=== PATIENT | female | born 1985 | race Caucasian/White ===

== ENCOUNTER 2016-11-16 01:26 | Emergency (ER) | payer MEDICAID ==
[~2016-11-16] VITALS: Ht 165.1 cm; Wt 49.4 kg
[2016-11-16 01:34] VITALS: BP 104/64
[2016-11-16 03:45] LABS: APPEARANCE,URINE CLEAR (CLEAR); BILIRUBIN,URINE NEGATIVE (NEGATIVE); BLOOD, URINE NEGATIVE Ery/uL (NEGATIVE); COLOR,URINE YELLOW (YELLOW); KETONES,URINE NEGATIVE (NEGATIVE); LEUKOCYTE ESTERASE ,URINE NEGATIVE (NEGATIVE); NITRITE, URINE NEGATIVE (NEGATIVE); PROTEIN,URINE TRACE mg/dl (NEGATIVE); UGLUCOSE NEGATIVE (NEGATIVE); UROBILINOGEN,URINE 0.2 EU/dL (0.2)
[2016-11-16 04:07] LABS: ADD URINE CULTURE NO; BACTERIA,URINE Rare /HPF (None Seen); RBC,URINE 0-2 /HPF (0-2); SQUAMOUS EPITHELIAL CELL,UR Few /HPF (None Seen); WBC,URINE 0-2 /HPF (0-3)
== END 2016-11-16 04:14 | disposition home or self-care (01) ==
LOC: ER 01:33
DX: R10.30 Lower abdominal pain, unspecified (principal); R14.1 Gas pain; F41.9 Anxiety disorder, unspecified; F84.0 Autistic disorder; F42.9 Obsessive-compulsive disorder, unspecified
CPT/HCPCS: 74000-TC; 81000-TC; A4606; Z7610